=== PATIENT | female | born 1965 | race Caucasian/White ===

== ENCOUNTER 2019-08-29 10:23 | Emergency (ER) | payer OTHER ==
[2019-08-29 11:23] LABS: Absolute Lymphocytes (CBC) 1.7 K/uL (0.7-4.9); Basophils % 0.9 % (0-1.3); Hematocrit 34.2 % (36.0-45.0); Lymphocytes % 34.7 % (15.3-44.8); MPV 7.7 fL (7.6-11.3); RBC Red Blood Cell Count 3.77 M/uL (3.86-4.86)
[2019-08-29 11:34] LABS: Potassium 3.7 mmol/L (3.5-5.1)
--- NOTE | 2019-08-29 11:37 | RAD REPORT ---
EXAM DESCRIPTION: US - Extrem Venous W Compress Mahendra - 08/29/2019 11:29 am CLINICAL HISTORY: Leg pain and swelling COMPARISON: None. TECHNIQUE: Real-time sonographic evaluation of the bilateral lower extremity common femoral, superfi cial femoral, popliteal and posterior tibial veins was performed. FINDINGS: Normal compressibility, flow augmentation, phasic flow and spontaneous flow are identified in the left and right lower extremity common femoral, superficial femoral, popliteal and posterior t ibial veins. No intraluminal filling defects seen. IMPRESSION: No DVT in either lower extremity.
--- NOTE | 2019-08-29 12:12 | RAD REPORT ---
EXAM DESCRIPTION: CT - Chest For Pe Angio - 08/29/2019 11:47 am CLINICAL HISTORY: Chest pain COMPARISON: 2018 ultrasound TECHNIQUE: Dynamically enhanced axial 3 mm thick images of the chest were obtained during administra tion of <100> mL Isovue 370 IV contrast. Coronal and oblique reconstruction images were generated and reviewed. Exam utilizes a protocol for optimal evaluation of pulmonary arterial tree. Maximum intensity projections 3D imaging was utilized All CT scans are performed using dose optimization technique as appropriate and may include automated exposure control or mA/KV adjustment according to patient size. FINDINGS: A pulmonary embolus is not seen. A thoracic aortic aneurysm is not noted. Small left pleural effusion A pericardial effusion is not seen. A lung consolidation is not present. 20 millimeter lesion right lobe liver IMPRESSION: Negative for a pulmonary embolism. 20 millimeter lesion right lobe of the liver without obvious change from the prior ultrasound
--- NOTE | 2019-08-29 12:37 | ER ---
Nurse's Notes [facility] Name: Gely Alston Age: 54 yrs Sex: Female : 1965 Arrival Date: 08/29/2019 Time: 10:25 Bed 16 Private MD: Amanuel Danielle C Diagnosis: Chest pain on breathing Presentation: 08/29 10:30 Presenting complaint: Patient states: "I've been having chest pains since last aa5 and Dr. Danielle ordered a chest x-ray and blood work so I got that done today but Dr. Danielle's office called me saying that my blood work showed a blood clot". Pt currently denies chest pain. 10:30 Transition of care: patient was not received from another setting of care. Onset of aa5 symptoms was July 2019. Initial Sepsis Screen: Does the patient meet any 2 criteria? No. Patient's initial sepsis screen is negative. Does the patient have a suspected source of infection? No. Patient's initial sepsis screen is negative. Care prior to arrival: None. 10:30 Acuity: BLACK 3 aa5 10:30 Method Of Arrival: Ambulatory aa5 10:30 Risk Assessment: Do you want to hurt yourself or someone else? Patient reports no aa5 desire to harm self or others. Historical: - Allergies: 10:31 No Known Allergies; aa5 - PMHx: 10:31 None; aa5 - PSHx: 10:31 ; Hysterectomy; Tummy tuck; Breast Augmentation; aa5 - Social history:: The patient lives at home. - Ebola Screening: : No symptoms or risks identified at this time. Screenin:36 Abuse screen: Denies threats or abuse. Nutritional screening: No deficits noted. rb1 Tuberculosis screening: No symptoms or risk factors identified. Fall Risk None identified. Assessment: 10:36 General: Appears in no apparent distress. comfortable, Behavior is calm, cooperative, rb1 Denies fever. Pain: Complains of pain in anterior aspect of left upper chest Pain currently is 0 out of 10 on a pain scale. at worst was 10 out of 10 on a pain scale. Pain began Last Aggravated by Deep breathing. Neuro: Level of Consciousness is awake, alert, obeys commands, Oriented to person, place, time, situation. Cardiovascular: Capillary refill < 3 seconds is brisk in bilateral fingers. Respiratory: Reports pain with respiration since Airway is patent Respiratory effort is even, unlabored, Respiratory pattern is regular, symmetrical. GI: No signs and/or symptoms were reported involving the gastrointestinal system. : No signs and/or symptoms were reported regarding the genitourinary system. Derm: Skin is pink, warm \\T\\ dry. 11:30 Reassessment: Patient appears in no apparent distress at this time. No changes from rb1 previously documented assessment. 12:30 Reassessment: Patient appears in no apparent distress at this time. Patient and/or rb1 family updated on plan of care and expected duration. Pain level reassessed. Patient is alert, oriented x 3, equal unlabored respirations, skin warm/dry/pink. Mother at bedside. 12:38 Reassessment: Dr. Dutton is at the pt. bedside. rb1 Vital Signs: 10:30 BP 136 / 85; Pulse 76; Resp 18 S; Temp 99.3(O); Pulse Ox 100% on R/A; Weight 72.57 kg aa5 (R); Height 5 ft. 3 in. (160.02 cm) (R); Pain 0/10; 11:30 BP 114 / 78; Pulse 68; Resp 17; Pulse Ox 98% on R/A; rb1 12:54 BP 110 / 70; Pulse 64; Resp 16 S; Pulse Ox 98% on R/A; aj1 10:30 Body Mass Index 28.34 (72.57 kg, 160.02 cm) aa5 ED Course: 10:25 Patient arrived in ED. ag5 10:27 Amanuel Danielle MD is Private Physician. ag5 10:30 Arm band placed on Patient placed in an exam room, on a stretcher. aa5 10:35 Bala Dutton MD is Attending Physician. gs 10:36 Patient has correct armband on for positive identification. Bed in low position. Call rb1 light in reach. Side rails up X 1. Pulse ox on. NIBP on. Warm blanket given. 10:37 Jacqueline Clarke, HANNAH is Primary Nurse. rb1 10:37 Triage completed. aa5 11:10 Inserted saline lock: 22 gauge in left antecubital area, using aseptic technique. rb1 11:27 US Extremity Venous W Compression Mahendra In Process Unspecified. EDMS 11:48 CT Chest For PE Angio In Process Unspecified. EDMS 12:35 Amanuel Danielle MD is Referral Physician. 12:55 No provider procedures requiring assistance completed. IV discontinued, intact, aj1 bleeding controlled, No redness/swelling at site. Pressure dressing applied. Administered Medications: No medications were administered Outcome: 12:35 Discharge ordered by MD. gs 12:55 Discharged to home ambulatory, with family. aj1 12:55 Condition: stable 12:55 Discharge instructions given to patient, Instructed on discharge instructions, follow up and referral plans. Demonstrated understanding of instructions, follow-up care. 13:05 Patient left the ED. aj1 Signatures: Dispatcher [employer] EDNC Atiya Ugalde RN RN aj1 Jacquie Grande RN RN aa5 Jacqueline Clarke, HANNAH RN rb1 Bala Dutton MD MD gs Gaskin, Sandra ag5
--- NOTE | 2019-08-29 12:37 | EDPHYS ---
Physician Documentation [facility] Name: Gely Alston Age: 54 yrs Sex: Female : 1965 Arrival Date: 08/29/2019 Time: 10:25 Bed 16 Private MD: Amanuel Tamayo C ED Physician Bala Dutton HPI: 08/29 12:33 This 54 yrs old Female presents to ER via Ambulatory with complaints of Blood gs Clot - Per Dr. TAMAYO. 12:33 The patient or guardian reports chest pain that is located primarily in the anterior gs chest wall. Onset: 1 week(s) ago. The pain does not radiate. Associated signs and symptoms: Pertinent positives: shortness of breath. The chest pain is described as a heaviness. Duration: The patient or guardian reports multiple episodes, that are intermittent, that wax and wane, with no pattern. Modifying factors: the symptoms are aggravated by deep breath. Severity of pain: At its worst the pain was moderate in the emergency department the pain has improved markedly. The patient has experienced similar episodes in the past, a few times. The patient has been recently seen by a physician: the patient's primary care provider. Historical: - Allergies: 10:31 No Known Allergies; aa5 - PMHx: 10:31 None; aa5 - PSHx: 10:31 ; Hysterectomy; Tummy tuck; Breast Augmentation; aa5 - Social history:: The patient lives at home. - Ebola Screening: : No symptoms or risks identified at this time. ROS: 12:33 All other systems are negative. gs Exam: 12:33 Head/Face: Normocephalic, atraumatic. Eyes: Pupils equal round and reactive to light, gs extra-ocular motions intact. Lids and lashes normal. Conjunctiva and sclera are non-icteric and not injected. Cornea within normal limits. Periorbital areas with no swelling, redness, or edema. ENT: Nares patent. No nasal discharge, no septal abnormalities noted. Tympanic membranes are normal and external auditory canals are clear. Oropharynx with no redness, swelling, or masses, exudates, or evidence of obstruction, uvula midline. Mucous membranes moist. Neck: Trachea midline, no thyromegaly or masses palpated, and no cervical lymphadenopathy. Supple, full range of motion without nuchal rigidity, or vertebral point tenderness. No Meningismus. Chest/axilla: Normal chest wall appearance and motion. Nontender with no deformity. No lesions are appreciated. Cardiovascular: Regular rate and rhythm with a normal S1 and S2. No gallops, murmurs, or rubs. Normal PMI, no JVD. No pulse deficits. Respiratory: Lungs have equal breath sounds bilaterally, clear to auscultation and percussion. No rales, rhonchi or wheezes noted. No increased work of breathing, no retractions or nasal flaring. Abdomen/GI: Soft, non-tender, with normal bowel sounds. No distension or tympany. No guarding or rebound. No evidence of tenderness throughout. Back: No spinal tenderness. No costovertebral tenderness. Full range of motion. Skin: Warm, dry with normal turgor. Normal color with no rashes, no lesions, and no evidence of cellulitis. MS/ Extremity: Pulses equal, no cyanosis. Neurovascular intact. Full, normal range of motion. Neuro: Awake and alert, GCS 15, oriented to person, place, time, and situation. Cranial nerves II-XII grossly intact. Motor strength 5/5 in all extremities. Sensory grossly intact. Cerebellar exam normal. Normal gait. 12:33 Constitutional: The patient appears alert, awake. 12:33 ECG was reviewed by the Attending Physician. Vital Signs: 10:30 BP 136 / 85; Pulse 76; Resp 18 S; Temp 99.3(O); Pulse Ox 100% on R/A; Weight 72.57 kg aa5 (R); Height 5 ft. 3 in. (160.02 cm) (R); Pain 0/10; 11:30 BP 114 / 78; Pulse 68; Resp 17; Pulse Ox 98% on R/A; rb1 12:54 BP 110 / 70; Pulse 64; Resp 16 S; Pulse Ox 98% on R/A; aj1 10:30 Body Mass Index 28.34 (72.57 kg, 160.02 cm) aa5 MDM: 10:48 Patient medically screened. 12:33 Differential diagnosis: acute myocardial infarction, coronary artery disease pulmonary gs embolus. Data reviewed: vital signs, and as a result, I will discharge patient. 08/29 10:52 Order name: CBC with Diff; Complete Time: 11:47 gs 08/29 10:52 Order name: Basic Metabolic Panel; Complete Time: 11:47 08/29 10:47 Order name: CT Chest For PE Angio; Complete Time: 12:32 08/29 10:47 Order name: US Extremity Venous W Compression Mahendra; Complete Time: 11:47 EC:33 Rate is 61 beats/min. Rhythm is regular. NH interval is normal. QRS interval is normal. gs QT interval is normal. T waves are Inverted in leads I, aVL, V5. Clinical impression: NSR w/ Non-specific ST/T Changes. Interpreted by me. Administered Medications: No medications were administered Disposition: 08/29/19 12:35 Discharged to Home. Impression: Chest pain on breathing. - Condition is Stable. - Discharge Instructions: Nonspecific Chest Pain, Chest Wall Pain. - Medication Reconciliation Form, Thank You Letter, Antibiotic Education, Prescription Opioid Use form. - Follow up: Amanuel Tamayo MD; When: 1 - 2 days; Reason: Re-evaluation by your physician. Signatures: Dispatcher [employer] EDAtiya Phipps RN RN aj1 Jacquie Grande RN RN aa5 Bala Dutton MD MD Corrections: (The following items were deleted from the chart) 13:05 12:35 08/29/2019 12:35 Discharged to Home. Impression: Chest pain on breathing. aj1 Condition is Stable. Forms are Medication Reconciliation Form, Thank You Letter, Antibiotic Education, Prescription Opioid Use. Follow up: Amanuel Tamayo; When: 1 - 2 days; Reason: Re-evaluation by your physician.
[2019-08-29 13:18] VITALS: O2SAT 98
[2019-08-29 13:19] VITALS: TEMP 99.3
[2019-08-29 13:21] VITALS: BP 110/70
== END 2019-08-29 13:05 | disposition home or self-care (01) ==
LOC: ER 10:23
DX: R07.1 Chest pain on breathing (principal); Z98.82 Breast implant status
CPT/HCPCS: 85025; 80048; 36415; 71275; 93970; 99283; Q9967